=== PATIENT | female | born 1980 | race Caucasian/White ===

== ENCOUNTER 2016-08-03 18:17 | Emergency (ER) | payer OTHER ==
[~2016-08-03] VITALS: Ht 165.1 cm; Wt 60.8 kg
[~2016-08-03 18:17] MED LIST: ADDERALL10 MG; CLONAZEPAM1 MG
[2016-08-03 19:40] LABS: HEMATOCRIT 33.3 % (36.0-46.0); MCH 29.3 PG (29.0-34.0); MCHC 32.7 G/DL (30.0-36.0); MCV 89.5 FL (83-99); MEAN PLAT.VOLUME 9.7 uM^3 (9.5-12.4); PLATELET COUNT 249 K/uL (156-360); RBC DIS.WIDTH-CV 14.2 % (11.8-14.6); RBC DIS.WIDTH-SD 46.5 % (39-53); RED BLOOD COUNT 3.72 M/uL (3.80-5.20); WHITE BLOOD COUNT 4.4 K/uL (4.1-10.2)
[2016-08-03 19:50] LABS: CHLORIDE 103 mEq/L (99-109); POTASSIUM 3.7 mEq/L (3.7-5.4); SODIUM 139 mEq/L (136-147)
[2016-08-03 19:51] LABS: GLUCOSE 117 mg/dL (70-99)
[2016-08-03 19:53] LABS: ANION GAP 9 MEQ/L (2-14)
[2016-08-03 19:54] LABS: SERUM ETHYL ALCOHOL < 10 mg/dL
[2016-08-03 19:55] LABS: GFR ESTIMATE (CALCULATED) > 59 mL/min/
[2016-08-03 19:56] LABS: UREA NITROGEN (BUN) 8 mg/dL (9-23)
[2016-08-03 20:06] LABS: QUANTITATIVE HCG < 4.0 MIU/ML
[2016-08-03 23:16] VITALS: BP 99/64
== END 2016-08-03 23:18 | disposition home or self-care (01) ==
LOC: EME 18:17
PROVIDERS: Emergency Medicine
DX: F33.9 Major depressive disorder, recurrent, unspecified (principal); F17.200 Nicotine dependence, unspecified, uncomplicated
CPT/HCPCS: 80048; 84702; 85027; 90839; 99281; 99285; G0480

== ENCOUNTER 2017-02-17 13:34 | Inpatient (IN) | payer OTHER ==
[~2017-02-17] VITALS: Ht 165.1 cm; Wt 72.7 kg
[2017-02-17 15:26] LABS: BASOPHIL (%) 0.4 % (0-1); EOSINOPHIL COUNT 0.2 K/uL (0-0.3); HEMATOCRIT 40.4 % (36.0-46.0); HEMOGLOBIN 13.9 G/DL (11.9-15.5); IMMATURE GRANULOCYTE (%) 0.4 % (0.0-0.7); LYMPHOCYTE (%) 28.2 % (15-42); LYMPHOCYTE COUNT 1.5 K/uL (1.0-2.8); MCH 32.6 PG (29.0-34.0); MCHC 34.4 G/DL (30.0-36.0); MCV 94.6 FL (83-99); MONOCYTE (%) 5.4 % (3-12); MONOCYTE COUNT 0.3 K/uL (0-0.8); NEUTROPHIL (%) 62.6 % (45-76); NEUTROPHIL COUNT 3.4 K/uL (1.8-6.4); PLATELET COUNT 256 K/uL (156-360); RBC DIS.WIDTH-CV 11.7 % (11.8-14.6); RBC DIS.WIDTH-SD 40.5 % (39-53); RED BLOOD COUNT 4.27 M/uL (3.80-5.20); WHITE BLOOD COUNT 5.4 K/uL (4.1-10.2)
[2017-02-17 15:47] LABS: CHLORIDE 106 mEq/L (99-109); POTASSIUM 4.1 mEq/L (3.7-5.4); SODIUM 140 mEq/L (136-147)
[2017-02-17 15:48] LABS: GLUCOSE 85 mg/dL (70-99)
[2017-02-17 15:52] LABS: CREATININE 0.8 mg/dL (0.6-1.3); GFR ESTIMATE (CALCULATED) > 59 mL/min/
[2017-02-17 15:53] LABS: UREA NITROGEN (BUN) 7 mg/dL (9-23)
[2017-02-17] MEDS ORDERED: CLEOCIN150 MG PO (18:13)
[2017-02-17] MEDS ORDERED: ZYRTEC10 M3 PO (18:13)
[2017-02-17] MEDS ORDERED: TYLENOL REGULA325 MG PO (18:13)
[2017-02-17] MEDS ORDERED: PEPCID20 MG PO (18:14)
[2017-02-17] MEDS ORDERED: DOXYCYCLINE HY100 MG PO (18:14)
[2017-02-17] MEDS ORDERED: BENADRYL50 MG PO (18:14)
[2017-02-17] MEDS ORDERED: EFFEXOR75 MG PO (18:14)
[2017-02-17] MEDS ORDERED: ADVIL,NUPRIN,M200 MG PO (18:14)
[2017-02-17] MEDS ORDERED: MINIPRESS2 MG PO (18:14)
[2017-02-18 00:19] VITALS: BP 111/78
[2017-02-18 07:24] LABS: BASOPHIL (%) 0 % (0-1); EOSINOPHIL (%) 0 % (0-5); HEMATOCRIT 36.6 % (36.0-46.0); HEMOGLOBIN 12.4 G/DL (11.9-15.5); IMMATURE GRANULOCYTE (%) 0.3 % (0.0-0.7); LYMPHOCYTE (%) 14.6 % (15-42); LYMPHOCYTE COUNT 0.5 K/uL (1.0-2.8); MCH 32.3 PG (29.0-34.0); MCHC 33.9 G/DL (30.0-36.0); MCV 95.3 FL (83-99); MONOCYTE (%) 0.8 % (3-12); NEUTROPHIL (%) 84.3 % (45-76); NEUTROPHIL COUNT 3.1 K/uL (1.8-6.4); PLATELET COUNT 241 K/uL (156-360); RBC DIS.WIDTH-CV 11.6 % (11.8-14.6); RED BLOOD COUNT 3.84 M/uL (3.80-5.20); WHITE BLOOD COUNT 3.6 K/uL (4.1-10.2)
[2017-02-18 07:53] VITALS: BP 98/58
[2017-02-18 07:56] LABS: CHLORIDE 109 MEQ/L (99-109); CREATININE 0.6 MG/DL (0.6-1.3); GFR ESTIMATE (CALCULATED) > 59 mL/min/; SODIUM 140 MEQ/L (136-147); UREA NITROGEN (BUN) 9 mg/dL (9-23)
[2017-02-18 08:02] LABS: GLUCOSE 137 mg/dL (70-99)
[2017-02-18 16:14] VITALS: BP 110/67
[2017-02-19 00:47] VITALS: BP 110/75
[2017-02-19 07:10] LABS: HEMATOCRIT 34.6 % (36.0-46.0); HEMOGLOBIN 11.8 G/DL (11.9-15.5); MCH 32.6 PG (29.0-34.0); MCHC 34.1 G/DL (30.0-36.0); MCV 95.6 FL (83-99); PLATELET COUNT 258 K/uL (156-360); RBC DIS.WIDTH-CV 11.7 % (11.8-14.6); RBC DIS.WIDTH-SD 40.8 % (39-53); RED BLOOD COUNT 3.62 M/uL (3.80-5.20); WHITE BLOOD COUNT 6.8 K/uL (4.1-10.2)
[2017-02-19 07:21] VITALS: BP 97/55
[2017-02-19 07:28] LABS: CHLORIDE 109 MEQ/L (99-109); CREATININE 0.7 MG/DL (0.6-1.3); GFR ESTIMATE (CALCULATED) > 59 mL/min/; GLUCOSE 105 mg/dL (70-99); POTASSIUM 4.1 MEQ/L (3.7-5.4); SODIUM 143 MEQ/L (136-147); UREA NITROGEN (BUN) 14 mg/dL (9-23)
[2017-02-19 09:19] LABS: C-REACTIVE PROTEIN 11.6 MG/L (0-10)
[2017-02-19 15:41] VITALS: BP 118/68
[2017-02-20 00:54] VITALS: BP 107/71
[2017-02-20 07:10] LABS: HEMATOCRIT 37.1 % (36.0-46.0); HEMOGLOBIN 12.8 G/DL (11.9-15.5); MCH 32.9 PG (29.0-34.0); MCHC 34.5 G/DL (30.0-36.0); MCV 95.4 FL (83-99); PLATELET COUNT 277 K/uL (156-360); RBC DIS.WIDTH-CV 11.8 % (11.8-14.6); RBC DIS.WIDTH-SD 40.8 % (39-53); RED BLOOD COUNT 3.89 M/uL (3.80-5.20); WHITE BLOOD COUNT 5.2 K/uL (4.1-10.2)
[2017-02-20 07:16] VITALS: BP 102/56
[2017-02-20 07:33] LABS: CHLORIDE 104 MEQ/L (99-109); CREATININE 0.7 MG/DL (0.6-1.3); GFR ESTIMATE (CALCULATED) > 59 mL/min/; GLUCOSE 96 mg/dL (70-99); POTASSIUM 3.9 MEQ/L (3.7-5.4); SODIUM 141 MEQ/L (136-147); UREA NITROGEN (BUN) 10 mg/dL (9-23)
[2017-02-20] MEDS ORDERED: ZYVOX600 MG PO (09:46)
== END 2017-02-20 12:26 | DRG 603 ==
LOC: EME 13:34 → EDOF 19:43 → ENRESERV 19:44 → 5SOUTH 23:20
PROVIDERS: Emergency Medicine; Hospitalist; Physician Assistant
DX: L03.211 Cellulitis of face (principal); T50.995A Adverse effect of other drugs, medicaments and biological substances, initial encounter; L02.01 Cutaneous abscess of face; R59.9 Enlarged lymph nodes, unspecified; L29.9 Pruritus, unspecified; F43.10 Post-traumatic stress disorder, unspecified; F19.21 Other psychoactive substance dependence, in remission; F32.9 Major depressive disorder, single episode, unspecified; Z88.2 Allergy status to sulfonamides; Z88.0 Allergy status to penicillin; Z87.440 Personal history of urinary (tract) infections; Z87.891 Personal history of nicotine dependence; Z80.0 Family history of malignant neoplasm of digestive organs
CPT/HCPCS: 70491; 80048; 80202; 85025; 85027; 86140; 87040; 87070; 87075; 87077; 87147; 87186; 87205; 87641; 99281; 99285; J0744; J1100; J1200; J1644; J2930; J3370; J7030; S0028